=== PATIENT | female | born 1980 | race Caucasian/White ===

== ENCOUNTER 2019-01-08 16:30 | Emergency (ER) | payer BC, OTHER ==
[2019-01-08 16:33] VITALS: TEMP 98.4
[2019-01-08] MEDS ORDERED: KETOROLAC 30 MG/ML 1 ML VIAL IVP STA (16:53)
[2019-01-08] MEDS ORDERED: SODIUM CHLORIDE 0.9% 1,000 ML IV STA (16:53)
[2019-01-08] MEDS ORDERED: ONDANSETRON 4 MG/2 ML VIAL IVP STA (16:53)
--- NOTE | 2019-01-08 17:02 | ED ---
Abdominal Pain HPI - General Chief Complaint: Abdominal Pain Stated Complaint: rt sided abd pain, vomiting Time Seen by Provider: 01/08/19 16:35 Source: patient Mode of arrival: ambulatory Limitations: no limitations - History of Present Illness Initial Comments: Patient is a 38-year-old female presenting to the emergency Department with complaints of right lower quadrant pain since this morning. Patient also reports associated nausea and vomiting. Patient states pain started suddenly in the right lower quadrant and has been consistent since this morning. Patient denies any radiation at this time. Patient denies fever, chills, urinary complaints. Patient states her bowel movements have been regular. Patient states she tried eating a little snack earlier but has no appetite. Patient admits to history of cholecystectomy and tubal ligation. No other complaints at this time. - Related Data Previous Rx's Medication Instructions Recorded Ketorolac [Toradol] 10 mg PO Q8HR #15 tab 01/08/19 Ondansetron Odt [Zofran Odt] 4 mg PO Q8HR PRN #10 tab 01/08/19 Allergies Allergy/AdvReac Type Severity Reaction Status Date / Time No Known Allergies Allergy Verified 01/08/19 16:33 Review of Systems ROS Statement: Those systems with pertinent positive or pertinent negative responses have been documented in the HPI. ROS Other: All systems not noted in ROS Statement are negative. Past Medical History Past Medical History: No Reported History History of Any Multi-Drug Resistant Organisms: None Reported Past Surgical History: Section, Cholecystectomy, Tubal Ligation Past Psychological History: No Psychological Hx Reported Smoking Status: Current every day smoker Past Alcohol Use History: None Reported Past Drug Use History: None Reported General Exam - General Exam Comments Initial Comments: GENERAL: Well-appearing, well-nourished and in no acute distress, but appears to be in pain. HEAD: Atraumatic, normocephalic. EYES: Pupils equal round and reactive to light, extraocular movements intact, sclera anicteric, conjunctiva are normal. ENT: TMs normal, nares patent, oropharynx clear without exudates. Moist mucous membranes. NECK: Normal range of motion, supple without lymphadenopathy or JVD. LUNGS: Breath sounds clear to auscultation bilaterally and equal. No wheezes rales or rhonchi. HEART: Regular rate and rhythm without murmurs, rubs or gallops. ABDOMEN: Patient very tender to palpation of the right lower quadrant and suprapubic area. Soft, normoactive bowel sounds. No rebound. No masses appreciated. : Deferred EXTREMITIES: Normal range of motion, no pitting or edema. No clubbing or cyanosis. NEUROLOGICAL: Cranial nerves II through XII grossly intact. Normal speech, normal gait. PSYCH: Normal mood, normal affect. SKIN: Warm, Dry, normal turgor, no rashes or lesions noted. Limitations: no limitations Course Vital Signs 01/08/19 01/08/19 16:31 17:33 Temperature 98.4 F Pulse Rate 89 Respiratory 18 16 Rate Blood Pressure 127/83 O2 Sat by Pulse 98 Oximetry Medical Decision Making - Medical Decision Making Patient is a 38-year-old female with complaints of right lower quadrant and suprapubic pain since this morning. Onset was sudden and has been consistent. Patient also reports nausea. Upon arrival, vital signs are stable, patient is afebrile. On exam patient has tenderness in the right lower quadrant and suprap ubic area. Rest of exam was within normal limits. CBC, CMP, UA are all within normal limits. Urine hCG is not detected. Pelvic ultrasound shows no acute process. The ovaries were not seen. Small amount of cul-de-sac fluid. Appendicitis less likely. Patient was given fluids, Toradol, Zofran with improvement in pain. Patient is stable for discharge. Patient is in agreement with this plan. Patient will be given Toradol and Zofran at discharge to continue at home as needed for pain. Return parameters were discussed with the patient she verbalized understanding. Case discussed with Dr. Victor. - Lab Data Result diagrams: 01/08/19 17:18 01/08/19 17:18 Lab Results 01/08/19 01/08/19 01/08/19 Range/Units 17:16 17:18 17:18 WBC 9.4 (3.8-10.6) k/uL RBC 5.17 (3.80-5.40) m/uL Hgb 15.6 (11.4-16.0) gm/dL Hct 47.8 H (34.0-46.0) % MCV 92.3 (80.0-100.0) fL MCH 30.1 (25.0-35.0) pg MCHC 32.6 (31.0-37.0) g/dL RDW 15.4 (11.5-15.5) % Plt Count 192 (150-450) k/uL Neutrophils % 67 % Lymphocytes % 20 % Monocytes % 4 % Eosinophils % 6 % Basophils % 1 % Neutrophils # 6.3 (1.3-7.7) k/uL Lymphocytes # 1.9 (1.0-4.8) k/uL Monocytes # 0.4 (0-1.0) k/uL Eosinophils # 0.6 (0-0.7) k/uL Basophils # 0.1 (0-0.2) k/uL Sodium 140 (137-145) mmol/L Potassium 3.8 (3.5-5.1) mmol/L Chloride 106 (98-107) mmol/L Carbon Dioxide 26 (22-30) mmol/L Anion Gap 8 mmol/L BUN 14 (7-17) mg/dL Creatinine 0.57 (0.52-1.04) mg/dL Est GFR (CKD-EPI)AfAm >90 (>60 ml/min/1.73 sqM) Est GFR (CKD-EPI)NonAf >90 (>60 ml/min/1.73 sqM) Glucose 102 H (74-99) mg/dL Calcium 9.8 (8.4-10.2) mg/dL Total Bilirubin 0.3 (0.2-1.3) mg/dL AST 17 (14-36) U/L ALT 21 (9-52) U/L Alkaline Phosphatase 58 (38-126) U/L Total Protein 6.6 (6.3-8.2) g/dL Albumin 4.1 (3.5-5.0) g/dL Urine Color Light Yellow Urine Appearance Clear (Clear) Urine pH 6.5 (5.0-8.0) Ur Specific [place] 1.011 (1.001-1.035) Urine Protein Negative (Negative) Urine Glucose (UA) Negative (Negative) Urine Ketones Negative (Negative) Urine Blood Negative (Negative) Urine Nitrite Negative (Negative) Urine Bilirubin Negative (Negative) Urine Urobilinogen <2.0 (<2.0) mg/dL Ur Leukocyte Esterase Negative (Negative) Urine HCG, Qual (Not Detectd) 01/08/19 Range/Units 17:18 WBC (3.8-10.6) k/uL RBC (3.80-5.40) m/uL Hgb (11.4-16.0) gm/dL Hct (34.0-46.0) % MCV (80.0-100.0) fL MCH (25.0-35.0) pg MCHC (31.0-37.0) g/dL RDW (11.5-15.5) % Plt Count (150-450) k/uL Neutrophils % % Lymphocytes % % Monocytes % % Eosinophils % % Basophils % % Neutrophils # (1.3-7.7) k/uL Lymphocytes # (1.0-4.8) k/uL Monocytes # (0-1.0) k/uL Eosinophils # (0-0.7) k/uL Basophils # (0-0.2) k/uL Sodium (137-145) mmol/L Potassium (3.5-5.1) mmol/L Chloride (98-107) mmol/L Carbon Dioxide (22-30) mmol/L Anion Gap mmol/L BUN (7-17) mg/dL Creatinine (0.52-1.04) mg/dL Est GFR (CKD-EPI)AfAm (>60 ml/min/1.73 sqM) Est GFR (CKD-EPI)NonAf (>60 ml/min/1.73 sqM) Glucose (74-99) mg/dL Calcium (8.4-10.2) mg/dL Total Bilirubin (0.2-1.3) mg/dL AST (14-36) U/L ALT (9-52) U/L Alkaline Phosphatase (38-126) U/L Total Protein (6.3-8.2) g/dL Albumin (3.5-5.0) g/dL Urine Color Urine Appearance (Clear) Urine pH (5.0-8.0) Ur Specific [place] (1.001-1.035) Urine Protein (Negative) Urine Glucose (UA) (Negative) Urine Ketones (Negative) Urine Blood (Negative) Urine Nitrite (Negative) Urine Bilirubin (Negative) Urine Urobilinogen (<2.0) mg/dL Ur Leukocyte Esterase (Negative) Urine HCG, Qual Not Detected (Not Detectd) Disposition Clinical Impression: Abdominal pain, Nausea Disposition: HOME SELF-CARE Condition: Stable Instructions (If sedation given, give patient instructions): Abdominal Pain (ED) Additional Instructions: Please return to the Emergency Department if symptoms worsen or any other concerns. Prescriptions: Ketorolac [Toradol] 10 mg PO Q8HR #15 tab Ondansetron Odt [Zofran Odt] 4 mg PO Q8HR PRN #10 tab PRN Reason: Nausea Is patient prescribed a controlled substance at d/c from ED?: No Referrals: Mervat Merchant MD [Primary Care Provider] - 1-2 days
[2019-01-08 17:25] LABS: Basophils # (A) 0.1 k/uL (0-0.2); Basophils % (A) 1 %; Eosinophils # (A) 0.6 k/uL (0-0.7); Eosinophils % (A) 6 %; HCT 47.8 % (34.0-46.0); HGB 15.6 gm/dL (11.4-16.0); Lymphocytes # (A) 1.9 k/uL (1.0-4.8); Lymphocytes % (A) 20 %; MCH 30.1 pg (25.0-35.0); MCHC 32.6 g/dL (31.0-37.0); MCV 92.3 fL (80.0-100.0); Mean Platelet Volume 8.3; Monocytes # (A) 0.4 k/uL (0-1.0); Monocytes % (A) 4 %; Neutrophils # (A) 6.3 k/uL (1.3-7.7); Neutrophils % (A) 67 %; Platelet Count 192 k/uL (150-450); RBC 5.17 m/uL (3.80-5.40); RDW 15.4 % (11.5-15.5); WBC 9.4 k/uL (3.8-10.6)
[2019-01-08 17:25] LABS: Appearance,Urine Clear (Clear); Bilirubin,Urine Negative (Negative); Blood,Urine Negative (Negative); Color,Urine Light Yellow; Glucose,Urine (UA) Negative (Negative); Ketones,Urine Negative (Negative); Leukocyte Esterase,Urine Negative (Negative); Nitrite,Urine Negative (Negative); PH, Urine 6.5 (5.0-8.0); Protein,Urine Negative (Negative); Specific Gravity,Urine 1.011 (1.001-1.035); Urobilinogen,Urine <2.0 mg/dL (<2.0)
[2019-01-08 17:37] LABS: ALT 21 U/L (9-52); AST 17 U/L (14-36); African American GFR (CKD) >90 (>60 ml/min/1.73 sqM); Albumin 4.1 g/dL (3.5-5.0); Alkaline Phosphatase 58 U/L (38-126); Anion Gap 8 mmol/L; Blood Urea Nitrogen 14 mg/dL (7-17); Calcium 9.8 mg/dL (8.4-10.2); Carbon Dioxide 26 mmol/L (22-30); Chloride 106 mmol/L (98-107); Glucose 102 mg/dL (74-99); Potassium 3.8 mmol/L (3.5-5.1); Sodium 140 mmol/L (137-145); Total Bilirubin 0.3 mg/dL (0.2-1.3); Total Protein 6.6 g/dL (6.3-8.2)
--- NOTE | 2019-01-08 19:27 | US ---
EXAMINATION TYPE: US transvaginal DATE OF EXAM: 01/08/2019 COMPARISON: US 2011 CLINICAL HISTORY: RLQ/suprapubic pain. RLQ pain/suprapubic pain x 1 day. Tubal ligation. 4 C Sections . Ablation. . TECHNIQUE: Transvaginal (TV). Date of LMP: 12/23/2018 EXAM MEASUREMENTS: Uterus: 10.0 x 7.0 x 5.1 cm Endometrial Stripe: 0.50 cm Right Ovary: not seen Left Ovary: not seen 1. Uterus: Anteverted Measurement upper limits of normal. Appears heterogeneous. Hypoechoic area s een upper right uterus or adjacent to uterus measurin.9 x 1.3 x 0.9 cm. Multiple anechoic areas s een in cervix. 2. Endometrium: appears wnl. Seen better transabdominally. Minimal images taken transabdominally. 3. Right Ovary: not seen 4. Left Ovary: not seen 5. Bilateral Adnexa: appear wnl. 6. Posterior cul-de-sac: Simple anechoic fluid seen, small in volume, and likely physiologic. IMPRESSION: 1. No acute process. 2. Small simple-appearing cul-de-sac fluid noted, likely physiologic.
[2019-01-08 20:02] VITALS: BP 119/81; PULSE 68; RESP 20
== END 2019-01-08 20:00 | disposition home or self-care (01) ==
LOC: EC 16:30
DX: R10.31 Right lower quadrant pain (principal); R11.2 Nausea with vomiting, unspecified; F17.200 Nicotine dependence, unspecified, uncomplicated; Z90.49 Acquired absence of other specified parts of digestive tract; Z98.51 Tubal ligation status
CPT/HCPCS: 36415; 80053; 85025; 81003; 81025; 76830; 99284; 96374; 96375; 96361 ×2; J2405; J1885

== ENCOUNTER → 2019-01-15 | Outpatient (CLI) | payer OTHER ==
--- NOTE | 2019-01-15 16:28 | US ---
EXAMINATION TYPE: US venous doppler duplex LE RT DATE OF EXAM: 01/15/2019 4:08 PM COMPARISON: NONE CLINICAL HISTORY: M79.89 RT LEG SWELLING,Z72.0 TOBACCO USE. Right leg lump on calf. SIDE PERFORMED: Right TECHNIQUE: The lower extremity deep venous system is examined utilizing real time linear array sonog ramses with graded compression, doppler sonography and color-flow sonography. VESSELS IMAGED: External Iliac Vein (EIV) Common Femoral Vein Deep Femoral Vein Greater Saphenous Vein * Femoral Vein Popliteal Vein Small Saphenous Vein * Proximal Calf Veins (* superficial vessels) Right Leg: Negative for DVT. Bakers cyst seen mid popliteal fossa 4.9 x 2.5 x 4.0cm. Superficial thr ombophlebitis right calf lump area. IMPRESSION: Grayscale, color doppler, spectral doppler imaging performed of the deep veins of the lo wer extremities. There is normal flow, compressibility, vascular waveforms. Right popliteal fossa Ch cyst Right calf superficial thrombophlebitis.
== END | disposition home or self-care (01) ==
LOC: RADUSWWP 15:47
PROVIDERS: ATTEND Family Medicine
DX: I80.01 Phlebitis and thrombophlebitis of superficial vessels of right lower extremity (principal); M71.21 Synovial cyst of popliteal space [Baker], right knee; Z72.0 Tobacco use

== ENCOUNTER → 2019-03-07 | Outpatient (CLI) | payer OTHER ==
--- NOTE | 2019-03-08 14:40 | US ---
EXAMINATION TYPE: US transvaginal DATE OF EXAM: 03/07/2019 COMPARISON: 01/08/2019 CLINICAL HISTORY: N83.201 Right Ovarian Cyst. TECHNIQUE: Transvaginal Date of LMP: 02/13/19 EXAM MEASUREMENTS: Uterus: 8.9 x 5.8 x 6.1 cm Endometrial Stripe: 0.6 cm Right Ovary: Obscured by overlying bowel gas Left Ovary: Obscured by overlying bowel gas 1. Uterus: Retroverted, nabothians noted in cervix. There appears to be an isoechoic mass with a cys tic center in the right uterus measuring 3.3 x 2.6 x 2.6 with some vascularity. 2. Endometrium: wnl 3. Right Ovary: Obscured by overlying bowel gas 4. Left Ovary: Obscured by overlying bowel gas Spectral, color and waveform doppler imaging shows good arterial and venous flow within the ovaries ; there is no evidence for ovarian torsion. 5. Bilateral Adnexa: wnl 6. Posterior cul-de-sac: wnl IMPRESSION: Ovaries not seen. No adnexal mass. 3 cm uterine fibroid. There is clearing of the free fluid compared to old exam.
== END | disposition home or self-care (01) ==
LOC: RADUSWWP 16:50
PROVIDERS: ATTEND Obstetrics & Gynecology
DX: D25.9 Leiomyoma of uterus, unspecified (principal)
CPT/HCPCS: 76830

== ENCOUNTER 2024-05-14 08:41 | Emergency (ER) | payer OTHER ==
--- NOTE | 2024-05-14 09:24 | ED ---
Lower Extremity Injury HPI - General Chief Complaint: Extremity Injury, Lower Stated Complaint: R leg injury/ pain/swelling Time Seen by Provider: 05/14/24 09:07 Source: patient, RN notes reviewed Mode of arrival: ambulatory Limitations: no limitations - History of Present Illness Initial Comments: This is a 43-year-old female who presents to the emergency department for a right lower extremity injury. Patient states that 3 days ago she accidentally kicked her leg on a wood pile. She had some bruising by the right knee, but nothing severe. She then started to notice bruising followed by some redness going up to the thigh. This is only painful to press on it. It is not painful at rest or with ambulation. She called her PCP who advised she come here for evaluation of a possible DVT. Denies any history of DVTs, chest pain, or shortness of breath. - Related Data Previous Rx's Medication Instructions Recorded Ketorolac [Toradol] 10 mg PO Q8HR #15 tab 01/08/19 Ondansetron Odt [Zofran Odt] 4 mg PO Q8HR PRN #10 tab 01/08/19 Cephalexin [Keflex] 500 mg PO Q6HR 7 Days #28 cap 05/14/24 Allergies Allergy/AdvReac Type Severity Reaction Status Date / Time No Known Allergies Allergy Verified 05/14/24 08:59 Review of Systems ROS Statement: Those systems with pertinent positive or pertinent negative responses have been documented in the HPI. ROS Other: All systems not noted in ROS Statement are negative. Past Medical History Past Medical History: No Reported History History of Any Multi-Drug Resistant Organisms: None Reported Past Surgical History: Breast Surgery, Section, Cholecystectomy, Tubal Ligation Additional Past Surgical History / Comment(s): valeri Tam Past Psychological History: No Psychological Hx Reported Smoking Status: Former smoker Past Alcohol Use History: None Reported Past Drug Use History: None Reported General Exam Limitations: no limitations General appearance: alert, in no apparent distress Head exam: Present: atraumatic, normocephalic, normal inspection Respiratory exam: Present: normal lung sounds bilaterally. Absent: respiratory distress, wheezes, rales, rhonchi, stridor Cardiovascular Exam: Present: regular rate, normal rhythm, normal heart sounds. Absent: systolic murmur, diastolic murmur, rubs, gallop, clicks Extremities exam: Present: other (Mild ecchymosis lateral to the right knee with some ecchymosis and overlying erythema scattered on the right thigh. No calf tenderness. Full range of motion. 2+ DP and PT pulses) Neurological exam: Present: alert, oriented X3, CN II-XII intact Psychiatric exam: Present: normal affect, normal mood Course Vital Signs 05/14/24 05/14/24 08:59 10:30 Temperature 98.1 F 98 F Pulse Rate 81 80 Respiratory 18 16 Rate Blood Pressure 147/94 148/89 O2 Sat by Pulse 97 98 Oximetry Medical Decision Making - Medical Decision Making This is a 43-year-old female who presents to the emergency department for a right leg injury. Was pt. sent in by a medical professional or institution? @ -No Did you speak to anyone other than the patient for history? @ -No Did you review nursing and triage notes? @ -Yes, and I agree, it is accurate with regards to the patient's symptoms. Were old charts reviewed? @ -No Differential Diagnosis? @ -Differential Musculoskeletal Muscular strain, contusion, ligament sprain, fracture, arthritis, septic arthritis, bursitis, cellulitis, muscle spasm, nerve compression, DVT, arterial occlusion, herpes zoster, electrolyte abnormality, tumor.... This is not meant to be in all inclusive list EKG interpreted by me (3pts min.)? @ -Not obtained X-rays interpreted by me (1pt min.)? @ -Not obtained CT interpreted by me (1pt min.)? @ -Not obtained U/S interpreted by me (1pt. min.)? @ -Duplex ultrasound of the right lower extremity obtained. My interpretation identifies no evidence of a DVT. What testing was considered but not performed? (CT, X-rays, U/S, labs)? Why? @ -None What meds were considered but not given? Why? @ -None Did you discuss the management of the patient with other professionals? @ -No Did you reconcile home meds? @ -No Was smoking cessation discussed for >3mins.? @ -No Was critical care preformed (if so, how long)? @ -No Were there social determinants of health that impacted care today? How? (Homelessness, low income, unemployed, alcoholism, drug addiction, transportation, low edu. Level, literacy, decrease access to med. care, fdc, rehab)? @ -No Was there de-escalation of care discussed even if they declined? (Discuss DNR or withdrawal of care, Hospice)? @ -No What co-morbidities impacted this encounter? (DM, HTN, Smoking, COPD, CAD, Cancer, CVA, Hep., AIDS, mental health diagnosis, sleep apnea, morbid obesity)? @ -None Was patient admitted / discharged? @ -Discharged. Duplex ultrasound of the right lower extremity obtained revealing no evidence of a DVT. She was noted to have superficial thrombophlebitis. Findings reviewed with the patient. Keflex prescribed for any potential infectious component. Advised anti-inflammatories such as ibuprofen as well as elevation and compression. Also advised follow-up with her primary care provider in the next couple of days. Patient discharged home in stable condition. Case discussed with ED attending Dr. Upton. Return precautions reviewed in depth, the patient is instructed to return to the emergency department with any new, worsening, or concerning symptoms. Patient verbalized understanding. Undiagnosed new problem with uncertain prognosis? @ -None Drug Therapy requiring intensive monitoring for toxicity (Heparin, Nitro, Insulin, Cardizem)? @ -None Were any procedures done? @ -None Diagnosis/symptom? @ -Superficial thrombophlebitis Acute, or Chronic, or Acute on Chronic? @ -Acute Uncomplicated (without systemic symptoms) or Complicated (systemic symptoms)? @ -Uncomplicated Side effects of treatment? @ -None Exacerbation, Progression, or Severe Exacerbation] @ -Not applicable Poses a threat to life or bodily function? @ -No - Radiology Data Radiology results: report reviewed, image reviewed Disposition Clinical Impression: Superficial thrombophlebitis Disposition: HOME SELF-CARE Instructions (If sedation given, give patient instructions): Superficial Thrombophlebitis (ED) Additional Instructions: Return to the emergency department with any new, worsening, or concerning symptoms. Take the antibiotic as prescribed for 7 days. Take an anti- inflammatory such as ibuprofen and elevate the leg. Follow up with your primary care provider in 1-2 days. Prescriptions: Cephalexin [Keflex] 500 mg PO Q6HR 7 Days #28 cap Is patient prescribed a controlled substance at d/c from ED?: No Referrals: Mervat Merchant MD [Primary Care Provider] - 1-2 days Time of Disposition: 10:19
--- NOTE | 2024-05-14 10:08 | US ---
EXAMINATION TYPE: US venous doppler duplex LE RT DATE OF EXAM: 05/14/2024 9:44 AM COMPARISON: Right lower extremity venous ultrasound 01/15/2019 CLINICAL INDICATION: Female, 43 years old with history of Redness and swelling; Edema/redness right t high. injury to right lower leg 2 days ago, Pain TECHNIQUE: The lower extremity deep venous system is examined utilizing real time linear array sonog ramses with graded compression, color doppler sonography, and spectral doppler. SIDE PERFORMED: right FINDINGS: VESSELS IMAGED: Common Femoral Vein Deep Femoral Vein Greater Saphenous Vein * Femoral Vein Popliteal Vein Small Saphenous Vein * Proximal Calf Veins (* superficial vessels) Right Leg: No evidence of DVT, superificial thrombus right anterior mid thigh within area of redness /palpable. Color Doppler imaging shows patency of the vessels. Spectral waveforms are within normal l imits. IMPRESSION: 1. No evidence of deep vein thrombosis of the right lower extremity. 2. Superficial thrombophlebitis of the right anterior mid thigh venous vasculature at area of concern . [facility], , 05/14/2024 10:06 AM
[2024-05-14 10:34] VITALS: BP 148/89; PULSE 80; RESP 16; TEMP 98
== END 2024-05-14 10:34 | disposition home or self-care (01) ==
LOC: EC 08:41
DX: I80.9 Phlebitis and thrombophlebitis of unspecified site (principal); Z87.891 Personal history of nicotine dependence
CPT/HCPCS: 99283